=== PATIENT | male | born 1950 | race Caucasian/White ===

== ENCOUNTER 2022-05-13 07:34 | Outpatient (CLI) | payer OTHER ==
[2022-05-13] MEDS ORDERED: ISOVUE-370 76%-LOCM 1 ML ONE (12:14)
== END 2022-05-13 07:35 | disposition home or self-care (01) ==
LOC: BICCT 07:34
DX: R10.9 Unspecified abdominal pain (principal); C18.9 Malignant neoplasm of colon, unspecified; C78.7 Secondary malignant neoplasm of liver and intrahepatic bile duct
CPT/HCPCS: 71260; 74177; 82565; Q9966